=== PATIENT | female | born 1960 | race Hispanic/Latino ===

== ENCOUNTER → 2018-09-08 | Outpatient (CLI) | payer OTHER | END | disposition home or self-care (01) | LOC: RAH 08:54 | PROVIDERS: ATTEND Internal Medicine | DX: R94.5 Abnormal results of liver function studies (principal); R74.0 Nonspecific elevation of levels of transaminase and lactic acid dehydrogenase [LDH]; Z90.49 Acquired absence of other specified parts of digestive tract | CPT/HCPCS: 76700 ==

== ENCOUNTER → 2020-08-20 | Outpatient (CLI) | payer OTHER | END | disposition home or self-care (01) | LOC: OIH 08:53 | PROVIDERS: ATTEND Internal Medicine | DX: R05 Cough (principal) | CPT/HCPCS: 71046 ==

== ENCOUNTER → 2022-09-16 | Outpatient (CLI) | payer OTHER | END | disposition home or self-care (01) | LOC: RAH 15:00 | PROVIDERS: ATTEND Internal Medicine | DX: R06.02 Shortness of breath (principal) | CPT/HCPCS: 71046 ==

== ENCOUNTER 2025-10-18 09:01 | Emergency (ER) | payer OTHER ==
[~2025-10-18] VITALS: Ht 152.4 cm; Wt 64.0 kg
--- NOTE | 2025-10-18 12:42 | HMCIMG ---
EXAM: US examination, one body part CLINICAL HISTORY: abscess, mass TECHNIQUE: Real-time ultrasound examination performed with image documentation. COMPARISON: None provided. FINDINGS: A complex fluid collection is noted in the midlower back within the subcutaneous plane, measuring approximately 4.1 4.5 2.7 cm. Peripheral vascularity is noted on color Doppler evaluation. A few internal echogenic foci are seen within the lesion. IMPRESSION: Complex subcutaneous fluid collection in the midlower back with peripheral vascularity, consistent with an abscess. /[place]
[2025-10-18 13:09] LABS: IMMATURE GRANULOCYTE ABSOLUTE 0.04 K/uL (0-1); NUCLEATED RED BLOOD CELLS 0.0 % (0.0-0.19); PLATELET COUNT (AUTO) 213 K/uL (130-400); RED BLOOD CELL COUNT(AUTO) 4.61 MIL/uL (4.00-5.50); RED CELL DISTRIBUTION WIDTH 12.2 % (11.0-15.5); WHITE BLOOD COUNT (AUTO) 11.3 K/uL (4.8-10.8)
[2025-10-18 13:18] LABS: CREATININE 0.9 mg/dL (0.5-1.0); GLOMERULAR FILTR. RATE CALC 71.0 mL/min (>90); GLUCOSE,RANDOM 91.0 mg/dL (70-105); SODIUM SERUM 135.0 mmol/L (136-145); UREA NITROGEN, BLOOD 13.0 mg/dL (7-18)
[2025-10-18] MEDS ORDERED: LIDOCAINE HCL 1% 20 ML VIAL INJ STA (13:29)
[2025-10-18] MEDS ORDERED: AMOX1TAB16 PO (14:13)
--- NOTE | 2025-10-18 14:14 | ERN ---
ED Note History of Present Illness Stated Complaint: CYST ON BACK Chief Complaint: Other Problems Time Seen by MD: 10:09 Time Seen by Midlevel: 10:09 Dictation: 65-year-old female coming in with a cyst on her lower back. Patient states he has had this is for a very long time however since it has not grown. Patient states she saw her PCP at that time and was given Bactrim but states has a grown and has worsened. Subjective fever. No nausea no vomiting or diarrhea. Allergies: Coded Allergies: No Known Drug Allergies (Unverified Allergy, Unknown, 10/18/25) Past Medical History Past Medical History: High Cholesterol Surgical History: None Review of System Dictation Constitutional: Negative for fever,chills, and weight loss Eyes: Negative for injury, pain,redness, and discharge ENT: Negative for injury,pain or swelling Cardiovascular: Negative for chest pain, palpitations, and edema Respiratory: Negative for shortness of breath, cough, and wheezing, Abdomen/GI: Negative for abdominal pain, nausea, vomiting, diarrhea, and constipation Back: Cyst, abscess in the mid back : Negative for injury, bleeding and discharge MS/Extremity: Negative for injury and deformity Skin: Negative for rash, and discoloration Neuro: Negative for headache, weakness, numbness, tingling, and seizure Psych: Negative for suicide ideation, homicidal ideation, and hallucinations Review of Systems: was completed Initial Vital Sign VS Vital Signs Date Time Temp Pulse Resp B/P (MAP) Pulse Ox O2 Delivery O2 Flow Rate FiO2 10/18/25 09:03 98.1 74 16 114/63 98 Room Air 10/18/25 10:13 0 21 Physical Exam Dictation General: awake, alert, NAD Head/Face: Normocephalic, atraumatic Eyes: PERRL, EOMI, vision at baseline ENT: oral cavity clear, TMs clear, no signs of infection Neck: Trachea midline, supple, no nuchal rigidity Cardiovascular: RRR, normal S1/S2, No MRGs, no JVD Respiratory: CTAB, no respiratory distress, No rales or wheezes Abdomen: Soft, non-tender, non-distended, normal bowel sounds, no guarding or rebound. Skin: Warm, dry, normal turgor, no rash, it is a area in the mid back that is red, fluctuance, erythemic and tender to touch streaking. In with a possible abscess MS/Extremity: Pulses equal, no cyanosis, neurovascular intact, FROM Neuro: COAx4, GCS 15, strength 5/5, CN 2-12 intact, normal cerebellar exam, normal gait, Psych: Normal behavior, mood, and affect normal Results (Laboratory/Radiology) Laboratory/Radiology Laboratory Tests Test 10/18/25 12:56 White Blood Count 11.3 K/uL (4.8-10.8) H Red Blood Count 4.61 MIL/uL (4.00-5.50) Hemoglobin 13.9 g/dL (12.0-16.0) Hematocrit 42.8 % (36-48) Mean Corpuscular Volume 92.8 fL (79-99) Mean Corpuscular Hemoglobin 30.2 pg (27.0-33.0) Mean Corpuscular Hemoglobin Concent 32.5 g/dL (32.0-36.0) Red Cell Distribution Width 12.2 % (11.0-15.5) Platelet Count 213 K/uL (130-400) Mean Platelet Volume 11.8 fL (7.5-10.5) H Immature Granulocyte % (Auto) 0.4 % (0-1) Neutrophils (%) (Auto) 68.9 % (40.0-77.0) Lymphocytes (%) (Auto) 20.5 % (21.0-51.0) L Monocytes (%) (Auto) 8.6 % (3.0-13.0) Eosinophils (%) (Auto) 1.2 % (0.0-8.0) Basophils (%) (Auto) 0.4 % (0.0-5.0) Neutrophils # (Auto) 7.8 K/uL (1.8-7.7) H Lymphocytes # (Auto) 2.3 K/uL (1.0-4.8) Monocytes # (Auto) 1.0 K/uL (0.1-1.0) Eosinophils # (Auto) 0.14 K/uL (0.00-0.70) Basophils # (Auto) 0.05 K/uL (0.00-0.20) Absolute Immature Granulocyte (auto 0.04 K/uL (0-1) Nucleated Red Blood Cells 0.0 % (0.0-0.19) Sodium Level 135 mmol/L (136-145) L Potassium Level 5.2 mmol/L (3.5-5.1) H Chloride Level 103 mmol/L (101-111) Carbon Dioxide Level 25 mmol/L (21-32) Blood Urea Nitrogen 13 mg/dL (7-18) Creatinine 0.9 mg/dL (0.5-1.0) Glomerular Filtration Rate Calc 71 mL/min (>90) Random Glucose 91 mg/dL (70-105) Total Calcium 9.4 mg/dL (8.5-10.1) Labs Reviewed?: Yes Ultrasound Comment: [facility] [address] [place] [address] IMAGING REPORT Signed PATIENT: EDGAR BLANK MR#: [id number] : 1960 SEX: F AGE: 65 LOCATION: [facility] ORDER 1052 STATUS: REG REPORT#: [id number] SERVICE 1051 REASON: abscess, mass ORDERING PHYSICIAN: LILIBETH SEGURA CNP PROCEDURE: SOFT LBACK - US SOFT TISSUE LOWER BACK EXAM: US examination, one body part CLINICAL HISTORY: abscess, mass TECHNIQUE: Real-time ultrasound examination performed with image documentation. COMPARISON: None provided. FINDINGS: A complex fluid collection is noted in the midlower back within the subcutaneous plane, measuring approximately 4.1 4.5 2.7 cm. Peripheral vascularity is noted on color Doppler evaluation. A few internal echogenic foci are seen within the lesion. IMPRESSION: Complex subcutaneous fluid collection in the midlower back with peripheral vascularity, consistent with an abscess. /[place] DICTATED BY: PERICO ARREDONDO Jr., MD DATE: 10/18/251341 ELECTRONICALLY SIGNED BY: PERICO ARREDONDO Jr., MD DATE: 10/18/251341 ED Course ED Course Orders Procedure Category Date Status Time Us Soft Tissue Lower US 10/18/25 Resulted Back 10:51 Cbc With Differential LAB 10/18/25 Complete 12:40 Basic Metabolic Panel LAB 10/18/25 Complete 12:40 Lidocaine Hcl 1% 20ml PHA 10/18/25 Complete Vial (Lidocaine Hc 13:29 Current Medications Medications (Trade) Dose Ordered Sig/Radu Route PRN Reason Start Time Stop Time Status Last Admin Dose Admin Lidocaine HCl (Lidocaine HCl 1% 20ml Vial) ONCE STAT INJ 10/18/25 13:29 10/18/25 13:32 DC Vital Signs Date Time Temp Pulse Resp B/P (MAP) Pulse Ox O2 Delivery O2 Flow Rate FiO2 10/18/25 11:50 98.2 60 20 117/73 98 Room Air* 0 21 10/18/25 10:13 98.2 74 20 112/60 100 Room Air* 0 21 10/18/25 09:03 98.1 74 16 114/63 98 Room Air Medical Decision Making MDM MDM: 65-year-old female coming in with a cyst on her lower back. Patient states he has had this is for a very long time however since it has not grown. Patient states she saw her PCP at that time and was given Bactrim but states has a grown and has worsened. Subjective fever. No nausea no vomiting or diarrhea. Lab work shows white count of 11.3, no anemia, no thrombocytopenia. Chemistry unremarkable. Ultrasound shows complaints consistent with the abscess . See I and D for procedure. Educated patient to follow up with PCP in 1-2 days return to the hospital if any signs of systemic infections. An added Augmentin has not antibiotic. Differential diagnosis: Abscess , lipoma, cellulitis Rationale: Tests considered and ordered secondary to shared decision making include: Previous outside records reviewed: Old ER visits. Risk of complication and/or morbidity or mortality of patient management: None Medications-Per medication reconciliation Need for hospitalization: Patient does not meet criteria for hospitalization. Need for emergency major/minor surgery: No There are no social concerns with this patient. Prescription drug management Prescriptions will include symptomatic care Patient's prior external medical records from other ER visits were reviewed by me as indicated. Prior testing and results from previous visits were reviewed. Prior tests were taken into account with medical decision making and resource utilization, independent historian/historians were used to obtain complete medical history. I independently interpreted the test that were performed, results were reviewed by me and considered findings on radiology if ordered. Medical management and examination interpretation discussions were had by me with other qualified healthcare professionals as indicated for the patient's care. Procedure Blade Size: 11 I & D Procedure: no betadine prep Progress We will treat with the area with a about 10 cc of lidocaine without epi 1%. Created a1 in and states he had with the 11 blade scalpel. Drained a large amount of purulent drainage, foul odor. Impact with the has been iodoform. DX & DISP Disposition: Discharge Departure Impression: Primary Impression: Back abscess Condition: Stable Scripts Amoxicillin/Potassium Clav (Amox Tr-K Clv 875-125 mg Tab) 875 Mg-125 Mg Tablet 1 EACH PO BID for 5 Days, #10 TAB 0 Refills Prov: LILIBETH SEGURA CNP 10/18/25 Additional Instructions: Keep the area clean and dry. Remove packing in the next 24-72 hours. Follow up with your primary care provider. Take antibiotics as prescribed. Return to the hospital if you develop any fevers, nausea, vomiting or any worsening symptoms. Referrals: RHONA BARRERA MD (PCP) Time of Disposition: 14:13 I have reviewed the case, and I agree with, Diagnosis and Plan LILIBETH SEGURA CNP Oct 18, 2025 14:14
[2025-10-18 14:29] VITALS: BP 145/61; PULSE 91; RESP 20; TEMP 97.6; O2SAT 97
== END 2025-10-18 14:29 | disposition home or self-care (01) ==
LOC: EDH 09:01
DX: L02.212 Cutaneous abscess of back [any part, except buttock and flank] (principal); E78.00 Pure hypercholesterolemia, unspecified
CPT/HCPCS: 10060; 36415; 76705; 80048; 85025; 99284